=== PATIENT | male | born 1990 | race Two or more races ===

== ENCOUNTER 2023-10-13 18:32 | Emergency (ER) | payer SELFPAY ==
[~2023-10-13] VITALS: Ht 180.3 cm; Wt 119.8 kg
[2023-10-13 19:37] VITALS: BP 146/90; PULSE 85; RESP 15; TEMP 98.4; O2SAT 96
[2023-10-13] MEDS ORDERED: LIDOCAINE 1% HCL (LOCAL ANESTH.) INJ 20ML MDV IJ ONE (22:00)
[2023-10-13] MEDS ORDERED: ACETAMINOPHEN 500 MG TAB PO ONE (22:45)
== END 2023-10-13 23:19 | disposition home or self-care (01) ==
LOC: ER 18:32
DX: S61.211A Laceration without foreign body of left index finger without damage to nail, initial encounter (principal); W26.0XXA Contact with knife, initial encounter; Y93.89 Activity, other specified; Y92.090 Kitchen in other non-institutional residence as the place of occurrence of the external cause; Y99.8 Other external cause status
CPT/HCPCS: 12002; 99282; J2001